=== PATIENT | male | born 1975 | race Caucasian/White ===

== ENCOUNTER 2016-12-13 17:30 | Outpatient (CLI) | payer OTHER | END 2016-12-13 17:31 | disposition home or self-care (01) | DX: J98.11 Atelectasis (principal) ==

== ENCOUNTER 2018-02-24 20:06 | Emergency (ER) | payer MEDICARE, OTHER ==
--- NOTE | 2018-02-24 21:14 | ED Physician Documentation ---
PD HPI SKIN - Stated complaint Stated Complaint: RT ELBOW AREA WOUND - Chief complaint Chief Complaint: Wound - History obtained from History obtained from: Patient - History of Present Illness Timing - onset: How many days ago (4-5) Pain level now: 3 Location: RUE Quality / character: Painful, Discolored, Crusted Associated symptoms: No: Fever, Joint pain Contributing factors: Unknown Similar symptoms before: Has not had sx before Recently seen: Not recently seen Review of Systems Constitutional: denies: Fever Skin: reports: Rash Musculoskeletal: reports: Extremity pain (localized to area of the lesion (RUE)) . denies: Joint pain, Extremity swelling, Joint swelling PD PAST MEDICAL HISTORY - Past Medical History Past Medical History: Yes Cardiovascular: High cholesterol GI: Chronic constipation : None Psych: Depression, Anxiety, Bipolar disorder Musculoskeletal: None - Past Surgical History Past Surgical History: Yes General: Appendectomy - Present Medications Home Medications: Ambulatory Orders Medication Instructions Recorded Confirmed Bupropion HCl [Wellbutrin Xl] 300 mg PO DAILY 02/24/18 02/24/18 Cephalexin [Keflex] 500 mg PO QID #27 capsule 02/24/18 Divalproex Sodium [Depakote] 500 mg PO DAILY 02/24/18 02/24/18 Docusate Sodium 250Mg Capsule 250 mg PO BID 02/24/18 02/24/18 [Colace 250Mg Capsule] Emtricitabine/Tenofovir [Truvada 1 tab PO DAILY PM 02/24/18 02/24/18 100 mg-150 mg Tablet] Mupirocin Calcium [Bactroban] 1 film TP BID #1 cream..g. 02/24/18 Prazosin HCl [Minipress] 2 mg PO DAILY 02/24/18 02/24/18 Sulfamethox/Trimeth 800/160 1 each PO BID #13 tablet 02/24/18 [Bactrim Ds 800/160] - Allergies Allergies/Adverse Reactions: Allergies Allergy/AdvReac Type Severity Reaction Status Date / Time No Known Drug Allergies Allergy Verified 02/24/18 20:20 - Social History Does the pt smoke?: No Smoking Status: Never smoker Does the pt drink ETOH?: No Does the pt have substance abuse?: No - Immunizations Immunizations are current?: Yes - POLST Patient has POLST: No PD ED PE NORMAL - Vitals Vital signs reviewed: Yes - General General: Alert and oriented X 3, No acute distress, Well developed/nourished PD ED PE EXPANDED - Extremities CHRISTOS UE/Hands Visual: 1 - rash (3 cm diameter round, confluent erythema with sharp margins; no fluctuance or discharge. there is crusting centrally and this was removed with a plastic curette; the underlying dermis exposed is pink, raw, scant bleeding, but no pus nor fluctuance. FROM right elbow. the elbow joint is not swollen, tender, hot to touch) Results - Vitals Vitals: Vital Signs - 24 hr 02/24/18 02/24/18 20:09 21:55 Temperature 36.5 C 36.8 C Heart Rate 57 L 57 L Respiratory 18 18 Rate Blood Pressure 124/69 124/75 O2 Saturation 96 98 Oxygen O2 Source Room air PD MEDICAL DECISION MAKING - ED course Complexity details: considered differential, d/w patient - Sepsis Event Vital Signs: Vital Signs - 24 hr 02/24/18 02/24/18 20:09 21:55 Temperature 36.5 C 36.8 C Heart Rate 57 L 57 L Respiratory 18 18 Rate Blood Pressure 124/69 124/75 O2 Saturation 96 98 Oxygen O2 Source Room air Departure - Departure Disposition: 01 Home, Self Care Clinical Impression: Cellulitis Qualifiers: Site of cellulitis: extremity Site of cellulitis of extremity: upper extremity Laterality: right Qualified Code(s): L03.113 - Cellulitis of right upper limb Condition: Good Instructions: ED Infec Skin Cellulitis Follow-Up: Jimena Alfaro PA-C [Primary Care Provider] - (3-5 days if not improving) Prescriptions: Cephalexin [Keflex] 500 mg PO QID #27 capsule Mupirocin Calcium [Bactroban] 1 film TP BID #1 cream..g. Sulfamethox/Trimeth 800/160 [Bactrim Ds 800/160] 1 each PO BID #13 tablet Discharge Date/Time: 02/24/18 22:00
[2018-02-24] MEDS ORDERED: cephALEXin 250 MG CAPSULE PO STA (21:35)
[2018-02-24] MEDS ORDERED: SULFAMETH/TRIMETH DS 800/160 MG TABLET PO STA (21:35)
[2018-02-24] MEDS ORDERED: MUPIROCIN 2% OINT 1 GM TOP STA (21:35)
[2018-02-24 21:56] VITALS: BP 124/75
== END 2018-02-24 22:00 | disposition home or self-care (01) ==
LOC: ED 20:06
DX: L03.113 Cellulitis of right upper limb (principal); F32.9 Major depressive disorder, single episode, unspecified; E78.00 Pure hypercholesterolemia, unspecified
CPT/HCPCS: 99283; A9270

== ENCOUNTER 2018-06-25 12:10 | Outpatient (CLI) | payer MEDICARE ==
--- NOTE | 2018-06-25 19:15 | XRAY Report ---
Reason: PAIN IN RIGHT KNEE Procedure Date: 06/25/2018 Accession Number: [id number] / [id number] Procedure: XR - Knee 3 View RT CPT Code: FULL RESULT: EXAM: RIGHT KNEE RADIOGRAPHY EXAM DATE: 06/25/2018 12:33 PM. CLINICAL HISTORY: Pain in right knee. COMPARISON: None. TECHNIQUE: 3 views. FINDINGS: Bones: Normal. No fractures or bone lesions. Joints: Minimal patellofemoral osteophytes are present. No knee effusion. Soft Tissues: Normal. No soft tissue swelling. IMPRESSION: Minimal patellofemoral osteoarthritis. RADIA
== END 2018-06-25 12:11 | disposition home or self-care (01) ==
LOC: DI 12:10
PROVIDERS: ATTEND Family Medicine
DX: M17.11 Unilateral primary osteoarthritis, right knee (principal)

== ENCOUNTER 2019-01-20 17:20 | Emergency (ER) | payer MEDICARE, MEDICAID ==
[2019-01-20 17:39] VITALS: BP 113/84
[2019-01-20] MEDS ORDERED: AZITHROMYCIN 250 MG TABLET PO STA (18:28)
[2019-01-20] MEDS ORDERED: cefTRIAXone 250 MG VIAL IM STA (18:28)
[2019-01-20] MEDS ORDERED: LIDOCAINE 1% 2 ML VIAL MC ONE (18:28)
--- NOTE | 2019-01-20 18:29 | ED Physician Documentation ---
History of Present Illness - Stated complaint Stated Complaint: MALE /PX - Chief complaint Chief Complaint: General - History obtained from History obtained from: Patient - History of Present Illness Timing: Other (He had a recent high risk sexual exposure and now has pelvic pain and dysuria consistent with a prior episode of chlamydia which was about a year ago.) Review of Systems Constitutional: denies: Fever, Chills GI: denies: Nausea, Vomiting, Diarrhea : reports: Dysuria. denies: Frequency PD PAST MEDICAL HISTORY - Past Medical History Cardiovascular: High cholesterol GI: Chronic constipation : None Psych: Depression, Anxiety, Bipolar disorder Musculoskeletal: None - Past Surgical History Past Surgical History: Yes General: Appendectomy - Present Medications Home Medications: Ambulatory Orders Medication Instructions Recorded Confirmed Bupropion HCl [Wellbutrin Xl] 300 mg PO DAILY 02/24/18 01/20/19 Divalproex Sodium [Depakote] 500 mg PO BID 02/24/18 01/20/19 Docusate Sodium 250Mg Capsule 250 mg PO BID 02/24/18 01/20/19 [Colace 250Mg Capsule] Emtricitabine/Tenofovir [Truvada 200 mg PO DAILY PM 02/24/18 01/20/19 100 mg-150 mg Tablet] Prazosin HCl [Minipress] 2 mg PO DAILY 02/24/18 02/24/18 - Allergies Allergies/Adverse Reactions: Allergies Allergy/AdvReac Type Severity Reaction Status Date / Time No Known Drug Allergies Allergy Verified 01/20/19 17:39 - Social History Does the pt smoke?: No Smoking Status: Never smoker Does the pt drink ETOH?: No Does the pt have substance abuse?: No - Immunizations Immunizations are current?: Yes - POLST Patient has POLST: No PD ED PE NORMAL - Vitals Vital signs reviewed: Yes - General General: Alert and oriented X 3, No acute distress - Abdomen Abdomen: Soft, Non tender - Back Back: No CVA TTP - Neuro Neuro: Alert and oriented X 3, Normal speech Results - Vitals Vitals: Vital Signs - 24 hr 01/20/19 17:33 Temperature 36.7 C Heart Rate 81 Respiratory 16 Rate Blood Pressure 113/84 H O2 Saturation 98 Oxygen O2 Source Room air Departure - Departure Disposition: Home, Self Care Clinical Impression: Urethritis Condition: Good Record reviewed to determine appropriate education?: Yes Instructions: ED STD Male Treated Comments: We will call if any of your STD tests are positive but rest are sure you are completely treated for gonorrhea and chlamydia. Follow-up with your doctor in a week. Your blood pressure was elevated today on check into the emergency department. This does not mean that you have hypertension, it is a common phenomenon to come to the emergency department and have elevated blood pressure. I recommend that you see your primary care physician within the week to have it rechecked when you are feeling better.
[2019-01-20 18:52] LABS: BILIRUBIN,URINE NEGATIVE (NEGATIVE); GLUCOSE, URINE (UA) NEGATIVE (NEGATIVE); KETONES,URINE (UA) TRACE mg/dL (NEGATIVE); LEUKOCYTE ESTERASE, URINE NEGATIVE (NEGATIVE); NITRITE,URINE NEGATIVE (NEGATIVE); OCCULT BLOOD,URINE NEGATIVE (NEGATIVE); PH,URINE 5.5 PH (5.0-7.5); PROTEIN,URINE NEGATIVE (NEGATIVE); UROBILINOGEN,URINE 0.2 (NORMAL) E.U./dL (NORMAL)
[2019-01-20 18:57] LABS: CLARITY,URINE CLEAR (CLEAR)
== END 2019-01-20 18:55 | disposition home or self-care (01) ==
LOC: ED 17:20
DX: N34.2 Other urethritis (principal); R03.0 Elevated blood-pressure reading, without diagnosis of hypertension
CPT/HCPCS: 81003; 87491; 87591; 96372; 99281; 99282; A9270; 81001; 87086; 87661

== ENCOUNTER 2020-05-25 13:44 | Outpatient (CLI) | payer MEDICARE, MEDICAID ==
--- NOTE | 2020-05-25 16:34 | XRAY Report ---
PROCEDURE: Knee 3 View LT INDICATIONS: LEFT KNEE JOINT PAIN TECHNIQUE: 3 views of the left knee(s) were acquired. COMPARISON: None. FINDINGS: Bones: No fractures or dislocations. No suspicious bony lesions. Soft tissues: No joint effusion. No suspicious soft tissue calcifications. IMPRESSION: No acute fracture. No osseous lesion. If symptoms and/or clinical suspicion for patholog y continue, further assessment with repeat plain films, or advanced imaging (e.g., CT, MRI, or bone s can) is recommended for further assessment. Reviewed by: Jewels Mohr MD on 05/25/2020 4:33 PM PDT Approved by: Jewels Mohr MD on 05/25/2020 4:33 PM PDT Station ID: [id number]
== END 2020-05-25 13:45 | disposition home or self-care (01) ==
LOC: DI 13:44
PROVIDERS: ATTEND Family Medicine
DX: M25.562 Pain in left knee (principal)

== ENCOUNTER 2020-06-19 16:41 | Outpatient (CLI) | payer MEDICARE, MEDICAID | END 2020-06-19 16:42 | disposition critical access hospital (66) | LOC: EMS 16:41 | PROVIDERS: ATTEND Surgery | DX: R46.89 Other symptoms and signs involving appearance and behavior (principal); R41.9 Unspecified symptoms and signs involving cognitive functions and awareness | CPT/HCPCS: A0425; A0429 ==

== ENCOUNTER 2020-06-19 16:59 | Emergency (ER) | payer MEDICARE, MEDICAID ==
[2020-06-19 17:30] LABS: BASOPHILS # (AUTO) 0.1 10^3/uL (0.0-0.1); BASOPHILS % (AUTO) 0.6 %; EOSINOPHILS % (AUTO) 0.3 %; HGB - HEMOGLOBIN 15.5 g/dL (14.0-18.0); LYMPHOCYTES # (AUTO) 2.4 10^3/uL (1.5-3.5); LYMPHOCYTES % (AUTO) 24.3 %; MEAN CORPUSCULAR VOLUME 97.2 fL (80.0-94.0); MEAN PLATELET VOLUME 9.7 fL (7.4-11.4); MONOCYTES # (AUTO) 0.6 10^3/uL (0.0-1.0); MONOCYTES % (AUTO) 6.5 %; NEUTROPHILS # (AUTO) 6.6 10^3/uL (1.5-6.6); NEUTROPHILS % (AUTO) 67.8 %; PLT - PLATELET COUNT 176 10^3/uL (130-450); RED BLOOD COUNT 4.69 10^6/uL (4.70-6.10); RED CELL DISTRIBUTION WIDTH 12.3 % (12.0-15.0); WHITE BLOOD COUNT 9.7 x10^3/uL (4.8-10.8)
[2020-06-19 17:48] LABS: ACETAMINOPHEN < 10 ug/mL (10-30); ALBUMIN 4.5 g/dL (3.2-5.5); ALBUMIN/GLOBULIN RATIO 1.2 (1.0-2.2); ALKALINE PHOSPHATASE 47 IU/L (42-121); ALT ALANINE AMINOTRANSFERASE 22 IU/L (10-60); AST ASPARTATE AMINOTRANSFERASE 19 IU/L (10-42); BILIRUBIN,TOTAL 0.6 mg/dL (0.2-1.0); BUN - BLOOD UREA NITROGEN 18 mg/dL (6-20); CALCIUM 9.2 mg/dL (8.5-10.3); CARBON DIOXIDE - CO2 27 mmol/L (21-32); CHLORIDE 100 mmol/L (101-111); CREATININE 1.1 mg/dL (0.6-1.2); GLUCOSE 103 mg/dL (70-100); LIPASE 22 U/L (22-51); SALICYLATE < 6.0 mg/dL; SODIUM 137 mmol/L (135-145); TOTAL PROTEIN 8.4 g/dL (6.7-8.2)
[2020-06-19 17:56] LABS: MUDS CUTOFF CONCENTRATIONS CUTOFF CONC BELOW:
[2020-06-19 18:07] LABS: BILIRUBIN,URINE NEGATIVE (NEGATIVE); GLUCOSE, URINE (UA) NEGATIVE (NEGATIVE); KETONES,URINE (UA) NEGATIVE (NEGATIVE); LEUKOCYTE ESTERASE, URINE NEGATIVE (NEGATIVE); NITRITE,URINE NEGATIVE (NEGATIVE); OCCULT BLOOD,URINE NEGATIVE (NEGATIVE); PH,URINE 5.5 PH (5.0-7.5); PROTEIN,URINE NEGATIVE (NEGATIVE); UROBILINOGEN,URINE 0.2 (NORMAL) E.U./dL (NORMAL)
[2020-06-19 18:08] LABS: CLARITY,URINE CLEAR (CLEAR)
--- NOTE | 2020-06-19 18:13 | ED Physician Documentation ---
History of Present Illness - Stated complaint Stated Complaint: MHE - Chief complaint Chief Complaint: MHE - Additonal information Additional information: 45-year-old male was brought into the emergency department for evaluation of hernandez behavior at home. He reports to me that his partner called 911 because he has been depressed lately. He has no thoughts of suicide or harm to others but admits that his bipolar depression is affecting his relationships. He reports to me that he would like to speak with a psychiatrist to help better manage his symptoms And is open to voluntary psychiatric placement. Meds Depakote, Descovy, bupropion Review of Systems Constitutional: reports: Reviewed and negative Eyes: reports: Reviewed and negative Ears: reports: Reviewed and negative Nose: reports: Reviewed and negative Throat: reports: Reviewed and negative Cardiac: reports: Reviewed and negative Respiratory: reports: Reviewed and negative GI: reports: Reviewed and negative : reports: Reviewed and negative Skin: reports: Rash Musculoskeletal: reports: Reviewed and negative Neurologic: reports: Reviewed and negative Psychiatric: reports: Depressed. denies: Suicidal, Homicidal, Hallucinations PD PAST MEDICAL HISTORY - Past Medical History Cardiovascular: High cholesterol GI: Chronic constipation : None Psych: Depression, Anxiety, Bipolar disorder Musculoskeletal: None - Past Surgical History Past Surgical History: Yes General: Appendectomy - Present Medications Home Medications: Ambulatory Orders Medication Instructions Recorded Confirmed Bupropion HCl [Wellbutrin Xl] 300 mg PO DAILY 02/24/18 01/20/19 Divalproex Sodium [Depakote] 500 mg PO BID 02/24/18 01/20/19 Docusate Sodium 250Mg Capsule 250 mg PO BID 02/24/18 01/20/19 [Colace 250Mg Capsule] Emtricitabine/Tenofovir [Truvada 200 mg PO DAILY PM 02/24/18 01/20/19 100 mg-150 mg Tablet] Prazosin HCl [Minipress] 2 mg PO DAILY 02/24/18 02/24/18 - Allergies Allergies/Adverse Reactions: Allergies Allergy/AdvReac Type Severity Reaction Status Date / Time No Known Drug Allergies Allergy Verified 06/19/20 17:12 - Social History Does the pt smoke?: No Smoking Status: Never smoker Does the pt drink ETOH?: No Does the pt have substance abuse?: No - Immunizations Immunizations are current?: Yes - POLST Patient has POLST: No PD ED PE EXPANDED - General General: Alert. No: No acute distress, Well developed/nourished - Cardiac Cardiac: Regular Rate, Radial strong equal, Pedal strong equal, Cap refill < 2 sec - Respiratory Respiratory: Clear to ausultation salena. No: Distress, Labored - Abdomen Abdomen: Normal Bowel sounds. No: Tender to palpation - Neuro Neuro: Alert and Oriented X 3, CNII-XII intact, Normal speech - Psych Psych: Depressed (Flat aspect, soft speech. Guarded words.), Withdrawn, Poor eye contact. No: Auditory hallucinations, Visual hallucinations Results - Vitals Vitals: Vital Signs - 24 hr 06/19/20 06/19/20 17:05 18:28 Temperature 37 C 37.4 C Heart Rate 80 84 Respiratory 15 Rate Blood Pressure 151/98 H 134/89 H O2 Saturation 99 Oxygen O2 Source Room air - EKG (time done) 1834 Rate: Rate (enter#) (85) Rhythm: NSR [place]: Normal Intervals: Normal [place] QRS: Normal Ischemia: Normal ST segments Compare to prior EKG: Old EKG unavailable Computer interpretation: Agree with computer - Labs Labs: Laboratory Tests 06/19/20 06/19/20 06/19/20 17:08 17:25 17:25 WBC 9.7 RBC 4.69 L Hgb 15.5 Hct 45.6 MCV 97.2 H MCH 33.0 H MCHC 34.0 RDW 12.3 Plt Count 176 MPV 9.7 Neut # (Auto) 6.6 Lymph # (Auto) 2.4 [place] # (Auto) 0.6 Eos # (Auto) 0.0 Baso # (Auto) 0.1 Absolute Nucleated RBC 0.00 Nucleated RBC % 0.0 Sodium 137 Potassium 4.2 Chloride 100 L Carbon Dioxide 27 Anion Gap 10.0 BUN 18 Creatinine 1.1 Estimated GFR (MDRD) 73 L Glucose 103 H Calcium 9.2 Total Bilirubin 0.6 AST 19 ALT 22 Alkaline Phosphatase 47 Total Protein 8.4 H Albumin 4.5 Globulin 3.9 Albumin/Globulin Ratio 1.2 Lipase 22 TSH Urine Color YELLOW Urine Clarity CLEAR Urine pH 5.5 Ur Specific [place] >=1.030 H Urine Protein NEGATIVE Urine Glucose (UA) NEGATIVE Urine Ketones NEGATIVE Urine Occult Blood NEGATIVE Urine Nitrite NEGATIVE Urine Bilirubin NEGATIVE Urine Urobilinogen 0.2 (NORMAL) Ur Leukocyte Esterase NEGATIVE Ur Microscopic Review NOT INDICATED Urine Culture Comments NOT INDICATED Salicylates < 6.0 Urine Opiates Screen NEGATIVE Ur Oxycodone Screen NEGATIVE Urine Methadone Screen NEGATIVE Ur Propoxyphene Screen NEGATIVE Acetaminophen < 10 L Ur Barbiturates Screen NEGATIVE Ur Tricyclics Screen NEGATIVE Ur Phencyclidine Scrn NEGATIVE Ur Amphetamine Screen NEGATIVE U Methamphetamines Scrn NEGATIVE U Benzodiazepines Scrn NEGATIVE Urine Cocaine Screen NEGATIVE U Cannabinoids Screen NEGATIVE Ethyl Alcohol < 5.0 06/19/20 17:25 WBC RBC Hgb Hct MCV MCH MCHC RDW Plt Count MPV Neut # (Auto) Lymph # (Auto) [place] # (Auto) Eos # (Auto) Baso # (Auto) Absolute Nucleated RBC Nucleated RBC % Sodium Potassium Chloride Carbon Dioxide Anion Gap BUN Creatinine Estimated GFR (MDRD) Glucose Calcium Total Bilirubin AST ALT Alkaline Phosphatase Total Protein Albumin Globulin Albumin/Globulin Ratio Lipase TSH 1.95 Urine Color Urine Clarity Urine pH Ur Specific [place] Urine Protein Urine Glucose (UA) Urine Ketones Urine Occult Blood Urine Nitrite Urine Bilirubin Urine Urobilinogen Ur Leukocyte Esterase Ur Microscopic Review Urine Culture Comments Salicylates Urine Opiates Screen Ur Oxycodone Screen Urine Methadone Screen Ur Propoxyphene Screen Acetaminophen Ur Barbiturates Screen Ur Tricyclics Screen Ur Phencyclidine Scrn Ur Amphetamine Screen U Methamphetamines Scrn U Benzodiazepines Scrn Urine Cocaine Screen U Cannabinoids Screen Ethyl Alcohol PD MEDICAL DECISION MAKING - ED course Complexity details: reviewed old records, reviewed results, re-evaluated patient, considered differential, d/w patient ED course: 45-year-old male comes to the emergency department with a chief complaint of depression but no actual suicidal ideation both he and his partner are interested in speaking to a psychiatrist to discuss voluntary hospitalization for management of his bipolar/depressive disorder. Once medically cleared we will have him speak with tele-psych 1929: Pt is medically cleared to be seen by tele-psych 1954: Patient expresses to me at this time that he no longer wishes to remain in the emergency department. He is very adamant that he does not have thoughts of harm to himself or others. He reports to me that he is going to call his psychiatrist through [facility] tomorrow to talk about his depression as well as long-term management of his bipolar disorder. He is going to stay with his sister arnoldo and he feels that that is a safe option for him. It was made very clear to the patient that he could return to the emergency department at any time to seek care for psychiatric services. If he ever feels unsafe or has thoughts of self-harm he is to return immediately to the ER Departure - Departure Disposition: 01 Home, Self Care Clinical Impression: Depression Qualifiers: Depression Type: other depression Qualified Code(s): F32.89 - Other specified depressive episodes Condition: Stable Record reviewed to determine appropriate education?: Yes Instructions: ED Depression Comments: Benjamin please continue to take your medications as already prescribed. Please follow up very closely with your psychiatrist through [facility]. If at any point you feel unsafe or have thoughts of self-harm return immediately to the emergency department
[2020-06-19 18:19] LABS: AMPHETAMINE SCREEN,URINE NEGATIVE (NEGATIVE); BENZODIAZEPINES SCREEN, URINE NEGATIVE (NEGATIVE); COCAINE SCREEN URINE NEGATIVE (NEGATIVE); METHADONE SCREEN, URINE NEGATIVE (NEGATIVE); METHAMPHETAMINES SCREEN, URINE NEGATIVE (NEGATIVE); OPIATE SCREEN, URINE NEGATIVE (NEGATIVE); OXYCODONE SCREEN, URINE NEGATIVE (NEGATIVE); PROPOXYPHENE SCREEN, URINE NEGATIVE (NEGATIVE); TRICYCLIC ANTIDEPRESSANT,URINE NEGATIVE (NEGATIVE)
[2020-06-19 20:03] VITALS: BP 165/105
== END 2020-06-19 20:02 | disposition home or self-care (01) ==
LOC: EDUNIT# → ED 16:59
DX: F31.9 Bipolar disorder, unspecified (principal); Z20.828 Contact with and (suspected) exposure to other viral communicable diseases
CPT/HCPCS: 36415; 80053; 81003; 83690; 84443; 85025; 93005; 99283; U0004; 80306; 80307; 80320; 80329; 81001; 87086

== ENCOUNTER 2020-07-04 08:00 | Outpatient (CLI) | payer MEDICAID, MEDICARE ==
[2020-07-04 18:15] LABS: BASOPHILS % (AUTO) 0.7 %; EOSINOPHILS # (AUTO) 0.1 10^3/uL (0.0-0.7); EOSINOPHILS % (AUTO) 1.9 %; HGB - HEMOGLOBIN 15.6 g/dL (14.0-18.0); LYMPHOCYTES # (AUTO) 2.7 10^3/uL (1.5-3.5); LYMPHOCYTES % (AUTO) 46.3 %; MEAN CORPUSCULAR HEMOGLOBIN 32.8 pg (27.0-31.0); MEAN CORPUSCULAR HGB CONC 33.7 g/dL (32.0-36.0); MEAN CORPUSCULAR VOLUME 97.5 fL (80.0-94.0); MEAN PLATELET VOLUME 10.3 fL (7.4-11.4); MONOCYTES # (AUTO) 0.5 10^3/uL (0.0-1.0); MONOCYTES % (AUTO) 7.8 %; NEUTROPHILS # (AUTO) 2.5 10^3/uL (1.5-6.6); NEUTROPHILS % (AUTO) 42.8 %; PLT - PLATELET COUNT 179 10^3/uL (130-450); RED BLOOD COUNT 4.75 10^6/uL (4.70-6.10); RED CELL DISTRIBUTION WIDTH 12.8 % (12.0-15.0); WHITE BLOOD COUNT 5.8 x10^3/uL (4.8-10.8)
[2020-07-04 19:07] LABS: ALBUMIN 4.1 g/dL (3.2-5.5); ALBUMIN/GLOBULIN RATIO 1.1 (1.0-2.2); ALKALINE PHOSPHATASE 40 IU/L (42-121); ALT ALANINE AMINOTRANSFERASE 36 IU/L (10-60); AST ASPARTATE AMINOTRANSFERASE 25 IU/L (10-42); BILIRUBIN,TOTAL 0.7 mg/dL (0.2-1.0); BUN - BLOOD UREA NITROGEN 17 mg/dL (6-20); CARBON DIOXIDE - CO2 25 mmol/L (21-32); CHLORIDE 104 mmol/L (101-111); CHOLESTEROL 301 mg/dL; GLUCOSE 106 mg/dL (70-100); HDL CHOLESTEROL 50 mg/dL; LDL CHOLESTEROL,CALCULATED 210 mg/dL; LDL/HDL RATIO 4.2 (<3.6); SODIUM 140 mmol/L (135-145); TOTAL PROTEIN 7.9 g/dL (6.7-8.2); VALPROIC ACID (DEPAKOTE) 67.5 ug/mL; VLDL CHOLESTEROL 41 mg/dL
[2020-07-04 19:58] LABS: HEMOGLOBIN A1c% 5.2 % (4.27-6.07)
[2020-07-05 09:52] LABS: HEPATITIS B SURFACE ANTIGEN NON-REACTIVE (NON-REACTIVE)
[2020-07-05 10:23] LABS: HEPATITIS C ANTIBODY NON-REACTIVE (NON-REACTIVE)
[2020-07-05 14:36] LABS: HIV AG/AB 4TH GEN NON-REACTIVE (NON-REACTIVE)
== END 2020-07-04 08:01 | disposition home or self-care (01) ==
LOC: LAB.WCP 08:00
PROVIDERS: ATTEND Internal Medicine
DX: E78.5 Hyperlipidemia, unspecified (principal); F31.9 Bipolar disorder, unspecified; E16.2 Hypoglycemia, unspecified; Z91.89 Other specified personal risk factors, not elsewhere classified
CPT/HCPCS: 36415; 80053; 80061; 80164; 83036; 84443; 85025; 86592; 86704; 86803; 87340; 87491; 87591; G0475; 81599; 83721; 87389; 87661

== ENCOUNTER 2020-09-10 17:20 | Outpatient (CLI) | payer MEDICARE, MEDICAID ==
--- OUTSIDE RECORDS SUMMARY | 2020-09-19 00:25 | EXTERNAL MEDICAL SUMMARY RPT | Continuity of Care Document ---
:1975 Demographics Phone Unavailable Preferred Language Bhutanese Marital Status Unknown Gnosticist Affiliation Unknown Race Unknown Ethnic Group Unknown Author Organization [place] Address [address] [place] [address] Phone Care Team Providers Name Role Phone MD Unavailable Unavailable Ephraim Unavailable Unavailable DAY Unavailable Unavailable Dominic Unavailable Unavailable [place] Unavailable Unavailable Problems Allergies date description facility [facility] NO KNOWN ENVIRONMENTAL ALLERGIES [facility]IVE [facility] CIPROFLOXACIN [facility] HALOPERIDOL LACTATE [facility] HALOPERIDOL [facility] HYDROCODONE [facility] HYDROCODONE-ACETAMINOPHEN [facility] LISINOPRIL [facility] LORAZEPAM [facility] MORPHINE [facility] PROMETHAZINE HCL [facility] NO KNOWN ALLERGIES [facility] MONOSODIUM GLUTAMATE [facility] NUT - UNSPECIFIED [facility] NO KNOWN ALLERGIES [facility] LATEX, NATURAL RUBBER [facility] Center LACTOSE [facility] MORPH[facility] CODEINE [facility] DOXYCYCLINE [facility] INSULIN LISPRO [facility] EGG [facility] HYDROCODONE-ACETAMINOPHEN [facility] No Known Drug Allergies [facility] NO KNOWN ENVIRONMENTAL ALLERGIES [facility] NO KNOWN ALL[facility] DOXYCYCLINE [facility] METRONIDAZOLE [facility] OTHER [facility] NO ALLERGY INFORMATION AVAILABLE [facility] PENICILLINS [facility] IODINATED CONTRAST MEDIA [facility]OXYPHENE [facility] DICLOXACILLIN [facility] CLINDAMYCIN [facility] POVIDONE-IODINE [facility] No Known Drug Allergies [facility] NO KNOWN ENVIRONMENTAL ALLERGIES [facility] OTHER [facility] PENICILLINS [facility] IODINATED CONTRAST MEDIA [facility] NO KNOWN ALLERGIES [facility] PROPOXYPHENE NAPSYLATE [facility] DICLOXACILLIN [facility] CLINDAMYCIN [facility] POVIDONE-IODINE [facility] No Known Drug Allergies [facility] Medications date description facility 2020-06-29 00:00:00 null [facility] 2020-06-29 00:00:00 null [facility] 2020-07-04 00:00:00 null [facility] 2020-07-04 00:00:00 null [facility] 2020-07-04 00:00:00 ELASTIC BANDAGES & SUPPORTS [facility] Procedures date description facility 2020-06-29 00:00:00 TSH WITH REFLEX TO FT4 [facility] date description facility 2020-06-29 00:00:00 RPR, Serum with Reflex [facility] date description facility 2020-06-29 00:00:00 Hep C AB with Reflex [facility] date description facility 2020-06-29 00:00:00 HIV 1&2 with reflex [facility] date description facility 2020-06-29 00:00:00 COMPREHENSIVE METABOLIC PANEL [facility] date description facility 2020-06-29 00:00:00 LIPIDS SCREEN [facility] date description facility 2020-06-29 00:00:00 VALPROIC ACID [facility] date description facility 2020-06-29 00:00:00 HGBA1C [facility] date description facility 2020-06-29 00:00:00 CBC W/Diff/Plt [facility] date description facility 2020-06-29 00:00:00 Hep B CAb Tot [facility] date description facility 2020-06-29 00:00:00 [facility] B Surface Antigen [facility] date description facility 2020-06-29 00:00:00 Chlamydia Trachomatis, TMA [facility] date description facility 2020-06-29 00:00:00 INFLUENZA VACCINE [facility] date description facility 2020-06-29 00:00:00 [facility] Results Social History date description facility 2020-06-29 00:00:00 Never smoker [facility] date description facility 2020-08-23 00:00:00 Never smoker [facility] Social History date description facility 2020-06-29 00:00:00 Never smoker [facility] date description facility 2020-08-23 00:00:00 Never smoker [facility] date description facility [id number]
== END 2020-09-10 17:21 | disposition critical access hospital (66) ==
LOC: EMS 17:20
PROVIDERS: ATTEND Surgery
DX: R45.851 Suicidal ideations (principal)
CPT/HCPCS: A0425; A0429

== ENCOUNTER 2020-09-10 17:36 | Emergency (ER) | payer MEDICARE, MEDICAID ==
--- NOTE | 2020-09-10 17:41 | ED Physician Documentation ---
PD HPI MHE - Stated complaint Stated Complaint: SI - History obtained from History obtained from: Patient, EMS - Additional information Additional information: 45-year-old gentleman with mental health issues, supposed to be on Depakote and bupropion but has not taken them in about a week presents with suicidal ideation with plan to kill himself by stabbing him and self in the heart multiple times. He is voluntary Review of Systems Ten Systems: 10 systems reviewed and negative Constitutional: reports: Reviewed and negative Ears: reports: Reviewed and negative Nose: reports: Reviewed and negative Cardiac: reports: Reviewed and negative PD PAST MEDICAL HISTORY - Past Medical History Cardiovascular: High cholesterol GI: Chronic constipation : None Psych: Depression, Anxiety, Bipolar disorder Musculoskeletal: None - Past Surgical History Past Surgical History: Yes General: Appendectomy - Present Medications Home Medications: Ambulatory Orders Medication Instructions Recorded Confirmed Bupropion HCl [Wellbutrin Xl] 300 mg PO DAILY 02/24/18 09/10/20 Divalproex Sodium [Depakote] 1,000 mg PO BID 02/24/18 09/10/20 Docusate Sodium 250Mg Capsule 250 mg PO BID 02/24/18 01/20/19 [Colace 250Mg Capsule] Emtricitabine/Tenofovir [Truvada 200 mg PO DAILY PM 02/24/18 01/20/19 100 mg-150 mg Tablet] Prazosin HCl [Minipress] 2 mg PO DAILY 02/24/18 02/24/18 - Allergies Allergies/Adverse Reactions: Allergies Allergy/AdvReac Type Severity Reaction Status Date / Time No Known Drug Allergies Allergy Verified 09/10/20 18:25 - Social History Does the pt smoke?: No Smoking Status: Never smoker Does the pt drink ETOH?: No Does the pt have substance abuse?: No - Immunizations Immunizations are current?: Yes - POLST Patient has POLST: No PD ED PE NORMAL - Vitals Vital signs reviewed: Yes - General General: Alert and oriented X 3, Other (Initially screaming and saying he wants to but is verbally redirectable) - HEENT HEENT: PERRL - Neck Neck: Supple, no meningeal sign, No bony TTP - Cardiac Cardiac: RRR, No murmur - Respiratory Respiratory: No respiratory distress, Clear bilaterally - Abdomen Abdomen: Soft, Non tender - Back Back: No CVA TTP, No spinal TTP - Derm Derm: Normal color, Warm and dry - Extremities Extremities: No edema, No calf tenderness / cord - Neuro Neuro: Alert and oriented X 3, Normal speech Results - Vitals Vitals: Vital Signs - 24 hr 09/10/20 09/10/20 09/10/20 17:36 18:24 21:19 Temperature 37.0 C Heart Rate 118 H 101 H 104 H Respiratory 22 18 15 Rate Blood Pressure 181/113 H 161/90 H 142/89 H O2 Saturation 98 96 97 Oxygen O2 Source Room air - Labs Labs: Laboratory Tests 09/10/20 09/10/20 09/10/20 17:52 17:53 17:53 WBC 5.3 RBC 4.55 L Hgb 14.7 Hct 44.0 MCV 96.7 H MCH 32.3 H MCHC 33.4 RDW 12.4 Plt Count 178 MPV 10.1 Neut # (Auto) 2.6 Lymph # (Auto) 2.2 [place] # (Auto) 0.4 Eos # (Auto) 0.0 Baso # (Auto) 0.0 Absolute Nucleated RBC 0.00 Nucleated RBC % 0.0 Sodium 137 Potassium 3.9 Chloride 99 L Carbon Dioxide 25 Anion Gap 13.0 BUN 27 H Creatinine 1.1 Estimated GFR (MDRD) 73 L Glucose 116 H Calcium 9.0 Total Bilirubin 0.6 AST 24 ALT 33 Alkaline Phosphatase 32 L Total Protein 7.9 Albumin 4.4 Globulin 3.5 Albumin/Globulin Ratio 1.3 Lipase 23 TSH Urine Color YELLOW Urine Clarity CLEAR Urine pH 5.5 Ur Specific [place] >=1.030 H Urine Protein NEGATIVE Urine Glucose (UA) NEGATIVE Urine Ketones TRACE Urine Occult Blood NEGATIVE Urine Nitrite NEGATIVE Urine Bilirubin NEGATIVE Urine Urobilinogen 0.2 (NORMAL) Ur Leukocyte Esterase NEGATIVE Ur Microscopic Review NOT INDICATED Urine Culture Comments NOT INDICATED Nasal Adenovirus (PCR) Nasal B. parapertussis DNA (PCR) Nasal Coronavir 229E PCR Nasal Coronavir HKU1 PCR Nasal Coronavir NL63 PCR Nasal Coronavir OC43 PCR Nasal Enterovir/Rhinovir PCR Nasal Influenza B PCR Nasal Influenza A PCR Nasal Parainfluen 1 PCR Nasal Parainfluen 2 PCR Nasal Parainfluen 3 PCR Nasal Parainfluen 4 PCR Nasal RSV (PCR) Nasal B.pertussis DNA PCR Nasal C.pneumoniae (PCR) Sung Human Metapneumo PCR Nasal M.pneumoniae (PCR) Nasal SARS-CoV-2 (PCR) Salicylates < 6.0 Urine Opiates Screen NEGATIVE Ur Oxycodone Screen NEGATIVE Urine Methadone Screen NEGATIVE Ur Propoxyphene Screen NEGATIVE Acetaminophen < 10 L Ur Barbiturates Screen NEGATIVE Ur Tricyclics Screen NEGATIVE Ur Phencyclidine Scrn NEGATIVE Ur Amphetamine Screen NEGATIVE U Methamphetamines Scrn NEGATIVE U Benzodiazepines Scrn NEGATIVE Urine Cocaine Screen NEGATIVE U Cannabinoids Screen NEGATIVE Ethyl Alcohol < 5.0 09/10/20 09/10/20 17:53 18:01 WBC RBC Hgb Hct MCV MCH MCHC RDW Plt Count MPV Neut # (Auto) Lymph # (Auto) [place] # (Auto) Eos # (Auto) Baso # (Auto) Absolute Nucleated RBC Nucleated RBC % Sodium Potassium Chloride Carbon Dioxide Anion Gap BUN Creatinine Estimated GFR (MDRD) Glucose Calcium Total Bilirubin AST ALT Alkaline Phosphatase Total Protein Albumin Globulin Albumin/Globulin Ratio Lipase TSH 1.77 Urine Color Urine Clarity Urine pH Ur Specific [place] Urine Protein Urine Glucose (UA) Urine Ketones Urine Occult Blood Urine Nitrite Urine Bilirubin Urine Urobilinogen Ur Leukocyte Esterase Ur Microscopic Review Urine Culture Comments Nasal Adenovirus (PCR) NOT DETECTED Nasal B. parapertussis DNA (PCR) NOT DETECTED Nasal Coronavir 229E PCR NOT DETECTED Nasal Coronavir HKU1 PCR NOT DETECTED Nasal Coronavir NL63 PCR NOT DETECTED Nasal Coronavir OC43 PCR NOT DETECTED Nasal Enterovir/Rhinovir PCR NOT DETECTED Nasal Influenza B PCR NOT DETECTED Nasal Influenza A PCR NOT DETECTED Nasal Parainfluen 1 PCR NOT DETECTED Nasal Parainfluen 2 PCR NOT DETECTED Nasal Parainfluen 3 PCR NOT DETECTED Nasal Parainfluen 4 PCR NOT DETECTED Nasal RSV (PCR) NOT DETECTED Nasal B.pertussis DNA PCR NOT DETECTED Nasal C.pneumoniae (PCR) NOT DETECTED Sung Human Metapneumo PCR NOT DETECTED Nasal M.pneumoniae (PCR) NOT DETECTED Nasal SARS-CoV-2 (PCR) NOT DETECTED Salicylates Urine Opiates Screen Ur Oxycodone Screen Urine Methadone Screen Ur Propoxyphene Screen Acetaminophen Ur Barbiturates Screen Ur Tricyclics Screen Ur Phencyclidine Scrn Ur Amphetamine Screen U Methamphetamines Scrn U Benzodiazepines Scrn Urine Cocaine Screen U Cannabinoids Screen Ethyl Alcohol PD MEDICAL DECISION MAKING - ED course ED course: [employer] respiratory panel ordered to rapidly test specifically for COVID-19 in this patient who is expected to be hospitalized He was given 10 mg of Zyprexa IM for anxiolysis. He was agreeable, this is not sedation. 45-year-old gentleman presents with suicidal ideation and active plan. Has extensive psychiatric history. He is agreeable to psychiatric hospitalization, and is voluntary for now, but if he were to change his mind I think he would need DCR evaluation. At the time of shift change, Jenn rob is considering him. He is currently stable. He is medically stable for psychiatric evaluation and transfer. Departure - Departure Clinical Impression: Suicidal ideation Depression Qualifiers: Depression Type: major depressive disorder Major depression recurrence: recurrent Active/Remission status: currently active Major depression episode severity: severe Psychotic features: without psychotic features Qualified Code(s): F33.2 - Major depressive disorder, recurrent severe without psychotic features Condition: Stable
[2020-09-10 18:02] LABS: BASOPHILS % (AUTO) 0.6 %; EOSINOPHILS % (AUTO) 0.6 %; HGB - HEMOGLOBIN 14.7 g/dL (14.0-18.0); LYMPHOCYTES # (AUTO) 2.2 10^3/uL (1.5-3.5); LYMPHOCYTES % (AUTO) 41.8 %; MEAN CORPUSCULAR HEMOGLOBIN 32.3 pg (27.0-31.0); MEAN CORPUSCULAR HGB CONC 33.4 g/dL (32.0-36.0); MEAN CORPUSCULAR VOLUME 96.7 fL (80.0-94.0); MEAN PLATELET VOLUME 10.1 fL (7.4-11.4); MONOCYTES # (AUTO) 0.4 10^3/uL (0.0-1.0); MONOCYTES % (AUTO) 7.8 %; NEUTROPHILS # (AUTO) 2.6 10^3/uL (1.5-6.6); NEUTROPHILS % (AUTO) 48.8 %; PLT - PLATELET COUNT 178 10^3/uL (130-450); RED BLOOD COUNT 4.55 10^6/uL (4.70-6.10); RED CELL DISTRIBUTION WIDTH 12.4 % (12.0-15.0); WHITE BLOOD COUNT 5.3 x10^3/uL (4.8-10.8)
[2020-09-10] MEDS ORDERED: OLANZapine 10 MG VIAL IM STA (18:06)
[2020-09-10 18:07] LABS: MUDS CUTOFF CONCENTRATIONS CUTOFF CONC BELOW:
[2020-09-10 18:13] LABS: BILIRUBIN,URINE NEGATIVE (NEGATIVE); GLUCOSE, URINE (UA) NEGATIVE (NEGATIVE); KETONES,URINE (UA) TRACE mg/dL (NEGATIVE); LEUKOCYTE ESTERASE, URINE NEGATIVE (NEGATIVE); NITRITE,URINE NEGATIVE (NEGATIVE); OCCULT BLOOD,URINE NEGATIVE (NEGATIVE); PH,URINE 5.5 PH (5.0-7.5); PROTEIN,URINE NEGATIVE (NEGATIVE); UROBILINOGEN,URINE 0.2 (NORMAL) E.U./dL (NORMAL)
[2020-09-10 18:15] LABS: ACETAMINOPHEN < 10 ug/mL (10-30); ALBUMIN 4.4 g/dL (3.2-5.5); ALBUMIN/GLOBULIN RATIO 1.3 (1.0-2.2); ALKALINE PHOSPHATASE 32 IU/L (42-121); ALT ALANINE AMINOTRANSFERASE 33 IU/L (10-60); AST ASPARTATE AMINOTRANSFERASE 24 IU/L (10-42); BILIRUBIN,TOTAL 0.6 mg/dL (0.2-1.0); BUN - BLOOD UREA NITROGEN 27 mg/dL (6-20); CARBON DIOXIDE - CO2 25 mmol/L (21-32); CHLORIDE 99 mmol/L (101-111); CREATININE 1.1 mg/dL (0.6-1.2); GLUCOSE 116 mg/dL (70-100); LIPASE 23 U/L (22-51); SALICYLATE < 6.0 mg/dL; SODIUM 137 mmol/L (135-145); TOTAL PROTEIN 7.9 g/dL (6.7-8.2)
[2020-09-10 18:24] LABS: CLARITY,URINE CLEAR (CLEAR)
[2020-09-10 18:25] LABS: AMPHETAMINE SCREEN,URINE NEGATIVE (NEGATIVE); BENZODIAZEPINES SCREEN, URINE NEGATIVE (NEGATIVE); COCAINE SCREEN URINE NEGATIVE (NEGATIVE); METHADONE SCREEN, URINE NEGATIVE (NEGATIVE); METHAMPHETAMINES SCREEN, URINE NEGATIVE (NEGATIVE); OPIATE SCREEN, URINE NEGATIVE (NEGATIVE); OXYCODONE SCREEN, URINE NEGATIVE (NEGATIVE); PROPOXYPHENE SCREEN, URINE NEGATIVE (NEGATIVE); TRICYCLIC ANTIDEPRESSANT,URINE NEGATIVE (NEGATIVE)
[2020-09-10 19:05] LABS: C. PNEUMONIAE- RESP PCR PANEL NOT DETECTED
[2020-09-11 12:32] VITALS: BP 122/86
[2020-09-11] MEDS ORDERED: polyethylene glycoL 3350 17 GM PACKET PO STA (12:58)
[2020-09-11] MEDS ORDERED: DOCUSATE SODIUM 100 MG CAPSULE PO STA (12:58)
== END 2020-09-11 15:13 ==
LOC: EDUNIT# → ED 17:36
DX: R45.851 Suicidal ideations (principal); Y63.6 Underdosing and nonadministration of necessary drug, medicament or biological substance; F33.2 Major depressive disorder, recurrent severe without psychotic features; Z20.828 Contact with and (suspected) exposure to other viral communicable diseases
CPT/HCPCS: 36415; 80053; 81003; 83690; 84443; 85025; 87086; 87631; 96372; 99283; 99285; A9270; 0202U; 80306; 80307; 80320; 80329; 81001

== ENCOUNTER 2020-12-21 14:57 | Outpatient (CLI) | payer MEDICARE, MEDICAID ==
--- NOTE | 2020-12-21 17:46 | XRAY Report ---
PROCEDURE: Knee 3 View LT INDICATIONS: LEFT KNEE PAIN TECHNIQUE: 3 views of the left knee(s) were acquired. COMPARISON: Left knee x-ray 05/25/2020 FINDINGS: Bones: No fractures or dislocations. No suspicious bony lesions. There is minimal medial and almanza lofemoral compartment narrowing. No erosions. Soft tissues: Mild to moderate joint effusion. No suspicious soft tissue calcifications. IMPRESSION: 1. Mild to moderate effusion with minimal medial and patellofemoral compartment narrowing most sugges tive of early degenerative change. Reviewed by: Ada Galloway MD on 12/21/2020 5:44 PM PDT Approved by: Ada Galloway MD on 12/21/2020 5:44 PM PDT Station ID: [id number]
== END 2020-12-21 14:58 | disposition home or self-care (01) ==
LOC: DI.N 14:57
PROVIDERS: ATTEND Internal Medicine
DX: M25.462 Effusion, left knee (principal); M25.562 Pain in left knee

== ENCOUNTER 2022-11-18 12:55 | Outpatient (CLI) | payer MEDICARE, MEDICAID, OTHER ==
--- NOTE | 2022-11-18 20:41 | XRAY Report ---
PROCEDURE: Knee 3 View LT INDICATIONS: LT KNEE PAIN TECHNIQUE: 3 views of the left knee(s) were acquired. COMPARISON: 12/21/2020 FINDINGS: Bones: No fractures or dislocations. No suspicious bony lesions. Moderate medial and lateral comp artment joint space narrowing. Appearance is similar to before. Soft tissues: No joint effusion. No suspicious soft tissue calcifications. IMPRESSION: No acute osseous abnormality. If symptoms persist, follow-up radiographs and/or CT or MR I may be helpful for further evaluation. Degenerative changes of the knee redemonstrated. Reviewed by: Bret Yang MD on 11/18/2022 8:39 PM PDT Approved by: Bret Yang MD on 11/18/2022 8:39 PM PDT Station ID: [id number]
== END 2022-11-18 12:56 | disposition home or self-care (01) ==
LOC: DI 12:55
PROVIDERS: ATTEND Physician Assistant
DX: M25.562 Pain in left knee (principal)

== ENCOUNTER 2024-03-28 16:20 | Outpatient (CLI) | payer MEDICARE ==
[2024-03-28 22:56] LABS: CHLAMYDIA TRACHOMATIS DNA NEGATIVE (NEGATIVE); NEISSERIA GONORRHOEAE DNA NEGATIVE (NEGATIVE); TRICHOMONAS VAGINALIS DNA NEGATIVE (NEGATIVE)
== END 2024-03-28 16:21 | disposition home or self-care (01) ==
LOC: LAB.N 16:20
PROVIDERS: ATTEND Internal Medicine
DX: Z11.3 Encounter for screening for infections with a predominantly sexual mode of transmission (principal)
CPT/HCPCS: 86592; 86704; 86803; 87340; 87491; 87591; 87661; G0475; 36415; 87389

== ENCOUNTER 2024-03-30 15:43 | Outpatient (CLI) | payer MEDICARE ==
--- NOTE | 2024-03-31 14:57 | XRAY Report ---
PROCEDURE: Shoulder 2+V LT INDICATIONS: LEFT SHOULDER IMPINGEMENT SYNDROME TECHNIQUE: 3 views of the shoulder were acquired. COMPARISON: None. FINDINGS: Bones: No fractures or dislocations. No suspicious bony lesions. Visualized ribs appear intact. Soft tissues: No suspicious soft tissue calcifications. The visualized lungs are within normal limi ts. IMPRESSION: No acute bony abnormality. No significant degenerative change. No calcific tendinopathy. Reviewed by: Raymond Thomas MD on 03/31/2024 2:55 PM PDT Approved by: Raymond Thomas MD on 03/31/2024 2:55 PM PDT Station ID: [id number]
== END 2024-03-30 15:44 | disposition home or self-care (01) ==
LOC: DI 15:43
PROVIDERS: ATTEND Internal Medicine
DX: M75.42 Impingement syndrome of left shoulder (principal)